=== PATIENT | female | born 1980 | race Caucasian/White ===

== ENCOUNTER 2016-08-22 06:06 | Emergency (ER) | payer OTHER ==
[~2016-08-22] VITALS: Ht 167.6 cm; Wt 78.0 kg
[~2016-08-22 06:06] MED LIST: CETI10 PO; HYDRO.5%T TOP; MEDR4PAK3 PO
[2016-08-22 06:16] VITALS: BP 127/84; PULSE 86; RESP 18; TEMP 97.9; O2SAT 100
[2016-08-22] MEDS ORDERED: IBUPROFEN 800 MG TAB PO ONE (06:30)
--- NOTE | 2016-08-22 06:50 | RADRPT ---
EXAM DATE/TIME: 08/22/2016 06:22 [place] COMPARISON: No previous studies available for comparison. INDICATIONS : Pt was jumping over wall, rolled ankle upon landing. MEDICAL HISTORY : None. SURGICAL HISTORY : None. ENCOUNTER: Initial ACUITY: 1 day PAIN SCORE: 6/10 LOCATION: Right Ankle FINDINGS: Three view exam was performed of the right ankle. The bony structures are in normal alignment. No e vidence of fracture or dislocation. There is some soft tissue swelling about the lateral malleolus. The ankle mortise is intact. No radiopaque foreign bodies are seen. Bony mineralization is normal w ith a benign bone island in the region of the cuboid. CONCLUSION: 1. Soft tissue swelling about the lateral malleolus. 2. No fracture. Chase Frederick MD on August 22, 2016 at 6:47 Board Certified Radiologist. This report was verified electronically.
--- NOTE | 2016-08-22 06:51 | PD ---
HPI Chief Complaint: Injury Time Seen by Provider: 06:24 Travel History International Travel<30 days: No Contact w/Intl Traveler<30days: No Traveled to known affect area: No History of Present Illness HPI Patient comes in with police escort for medical clearance of right ankle pain. Patient states that she tried to jump over a wall when she landed she rolled her right ankle. Patient complaining of throbbing pain over the lateral aspect of her right ankle without radiation. Patient denies doing anything for this prior comes emergency Department. Pain is worse with palpation as well as walking. Patient denies anything making it better. Denies any numbness or tingling, chest pain, shortness of breath, nausea or vomiting, or PFSH Past Medical History Medical History: Denies Significant Hx ?: Not Tubal Ligation: Yes Past Surgical History Appendectomy: Yes Section: Yes Social History Alcohol Use: Yes (OCC) Tobacco Use: Yes (10 CIGS/DAY) Substance Use: No Allergies-Medications (Allergen,Severity, Reaction): Coded Allergies: Valium (Verified Allergy, Severe, 08/22/16) Reported Meds & Prescriptions Reported Meds & Active Scripts Active Review of Systems Except as stated in HPI: all other systems reviewed are Neg Physical Exam Narrative GENERAL: Well-developed, overly nourished, in no acute distress, and non-ill appearing. SKIN: Focused skin assessment warm and dry. HEAD: Atraumatic. Normocephalic. EYES: Pupils equal and round. EOMI. No scleral icterus. No injection or drainage. ENT: No nasal bleeding or discharge. Mucous membranes pink and moist. NECK: Trachea midline. Supple. No nuclear rigidity. CARDIOVASCULAR: Dorsal pulses 2+, intact, equal bilaterally. Capillary refill less than 2 seconds. RESPIRATORY: No accessory muscle use. No respiratory distress. MUSCULOSKELETAL: No obvious deformities. No clubbing. No cyanosis. No edema. Full range of motion. Ankle: Neagative anterior draw and Jolly test. Negative Blossom's sign. No laxity noted with passive inversion and eversion of BL ankles. Negative squeeze test. Pulses equal BL distal to injury. Capillary refill less than 2 seconds distal to injury and equal BL. Sensation equal BL 1st web space. FROM of toes distal to injury and equal BL. NV intact distal to injury and equal BL. Dorsal pulses equal BL. Minimal soft tissue swelling noted lateral aspect right ankle. She reports tenderness over this area. Patient is able to ambulate and bear full weight. NEUROLOGICAL: Awake and alert. No obvious cranial nerve deficits. Motor grossly within normal limits. Normal speech. PSYCHIATRIC: Appropriate mood and affect; insight and judgment normal. Data Data Last Documented VS Orders Ankle, Complete ([id number]) (08/22/16 ) Ice/Cold Pack (08/22/16 06:23) Ibuprofen (Motrin) (08/22/16 06:30) Splint Or Brace Apply/Monitor (08/22/16 06:52) Brace Ankle Stirrup (08/22/16 ) MDM Medical Decision Making Medical Screen Exam Complete: Yes Emergency Medical Condition: Yes Interpretation(s) X-ray right ankle shows no acute fractures. To be over read by the radiologist. Differential Diagnosis Fracture, sprain, strain, contusion, other Narrative Course There is no clinical evidence for fracture. There is no clinical evidence to suspect bony injury by exam. Radiographic examination revealed no fracture seen at this time. No obvious ligamental injury or internal derangement is noted at this time. The distal extremity appears neurovascularly intact, without evidence of neurovascular injury nor compartment syndrome. Tendon exam also was intact. The effected limb was splinted. The patient was discharged with sprain and splint care instructions and given warnings for vascular compromise. The patient is to follow up with Orthopedics. The patient agrees with plan. Patient in no obvious distress upon re-evaluation. All pertinent Radiology result(s) discussed with patient. Any questions/concerns in reference to patient diagnosis/condition discussed and clarified prior to patient's discharge. Reinforced sheer importance of close follow up with patient's primary physician or primary care clinic. Instructed patient to return to ED immediately, if symptoms return/worsen. Pt showed understanding of above instructions. Further instructions and recommendations were detailed in discharge paperwork. Pt ambulated without difficulty out of ED at discharge under police escort. Diagnosis Primary Impression: Right ankle sprain Qualified Code: S93.401A - Sprain of right ankle, unspecified ligament, initial encounter Patient Instructions: Ankle Sprain (ED), Ankle Sprain Exercises (GEN), Ankle Stirrup Splint (ED), General Instructions Additional Instructions: Follow-up with your primary care physician and/or orthopedic in 2-3 days for evaluation. Use [id number] Tylenol and/or appropriate as needed for pain. Follow instructions on the packaging. Apply ice to affected area 20 minutes per hour as needed for pain. Return to the emergency department if symptoms get worse. Disposition: [address] LAW ENFORCEMNT Condition: Stable Thomas Bernal Aug 22, 2016 06:51
== END 2016-08-22 07:52 ==
LOC: NEPD 06:06
DX: S93.401A Sprain of unspecified ligament of right ankle, initial encounter (principal); X58.XXXA Exposure to other specified factors, initial encounter
CPT/HCPCS: 73610; 99283; L1906